=== PATIENT | female | born 1955 | race Caucasian/White ===

== ENCOUNTER 2020-05-04 11:22 | Emergency (ER) | payer SELFPAY ==
[~2020-05-04] VITALS: Ht 157.5 cm; Wt 68.8 kg
[2020-05-04] MEDS ORDERED: NORVASC5 M1 PO (12:51)
[2020-05-04] MEDS ORDERED: ESCITALOPRAM OX10 MG PO (12:51)
[2020-05-04] MEDS ORDERED: CYCLOBENZAPR5 MG PO (12:52)
[2020-05-04] MEDS ORDERED: METOPROL TAR25 MG PO (12:52)
[2020-05-04] MEDS ORDERED: HYDROXYZ HCL25 MG PO (12:53)
[2020-05-04] MEDS ORDERED: TRAZODONE50 MG PO (12:53)
[2020-05-04] MEDS ORDERED: ATORVASTATIN CA40 MG PO (12:53)
[2020-05-04] MEDS ORDERED: PROTONIX40 M2 PO (12:54)
[2020-05-04 13:56] VITALS: BP 103/79
== END 2020-05-04 13:56 | disposition home or self-care (01) | DRG 556 ==
LOC: ED 11:22
DX: M79.7 Fibromyalgia (principal); M19.90 Unspecified osteoarthritis, unspecified site; I10 Essential (primary) hypertension; F17.200 Nicotine dependence, unspecified, uncomplicated; T40.2X6A Underdosing of other opioids, initial encounter; Z91.128 Patient's intentional underdosing of medication regimen for other reason

== ENCOUNTER 2022-04-22 04:38 | Emergency (ER) | payer MEDICARE, MEDICAID ==
[~2022-04-22] VITALS: Ht 157.5 cm; Wt 56.8 kg
[~2022-04-22 04:38] MED LIST: ALBUTERO3 IN; ATORVASTATIN CA40 MG PO; CYCLOBENZAPR5 MG PO; ESCITALOPRAM OX10 MG PO; HYDROCO/APAP1 T10 PO; HYDROCO/APAP1 TA9 PO; HYDROXYZ HCL25 MG PO; LYRICA150 MG PO; LYRICA225 MG PO; METOPROL TAR25 MG PO; NEURONTIN600 MG PO; NORCO1 TA2 PO; NORVASC5 M1 PO; PERCOCET 10/31 COMBO PO; PROTONIX40 M2 PO; TRAZODONE50 MG PO
[2022-04-22 05:58] LABS: HEMATOCRIT 36.3 % (37.0-47.0); HEMOGLOBIN 11.9 g/dl (12.0-16.0); IMMATURE GRANULOCYTES 0.1 % (0.0-5.0); MEAN CELL VOLUME 97.3 fL CALC (80.0-100.0); MEAN CORPUSCULAR HGB 31.9 pG CALC (26.0-32.0); MEAN CORPUSCULAR HGB CONC 32.8 g/dL CAL (32.0-36.0); NEUT# 4.27 thou/uL (2.00-7.15); RED BLOOD COUNT 3.73 mill/uL (4.20-5.60); RED CELL DISTRI WIDTH 12.4 % (11.5-15.5)
[2022-04-22 06:11] LABS: ALBUMIN 4.3 g/dL (3.2-5.0); ALKALINE PHOSPHATASE 36 u/l (38-126); ANION GAP 10 (6-22 (CALC)); BILIRUBIN, TOTAL 0.5 mg/dL (0.0-1.4); BUN 25 mg/dL (8-23); BUN/CREATININE RATIO 24 (12-20 (CALC)); CARBON DIOXIDE 26 mmol/l (22-30); CHLORIDE 108 mmol/l (95-108); CREATININE 1.1 mg/dL (0.5-1.0); GFR FOR AFR.AMER. 60 ML/MIN (>=60 (CALC)); GFR OTHER RACES 50 ML/MIN (>=60 (CALC)); POTASSIUM 4.1 mmol/l (3.5-5.1); SGOT/AST 48 u/l (9-36); SODIUM 140 mmol/l (137-146); TOTAL PROTEIN 6.9 g/dL (6.3-8.2)
[2022-04-22 06:24] LABS: MYOGLOBIN 83 ng/mL (0 - 62)
[2022-04-22] MEDS ORDERED: DIFLUCAN150 MG PO (07:14)
[2022-04-22 08:12] VITALS: BP 132/68
== END 2022-04-22 08:14 | disposition home or self-care (01) ==
LOC: ED 04:38
PROVIDERS: Emergency Medicine
DX: J44.1 Chronic obstructive pulmonary disease with (acute) exacerbation (principal); B37.0 Candidal stomatitis; I10 Essential (primary) hypertension; F17.200 Nicotine dependence, unspecified, uncomplicated

== ENCOUNTER 2023-01-05 09:08 | Day surgery (SDC) | payer MEDICARE ==
[~2023-01-05] VITALS: Ht 157.5 cm; Wt 59.0 kg
[~2023-01-05 09:08] MED LIST changes: +BUPROPION HCL150 MG PO; +DIFLUCAN150 MG PO; +SERTRALINE50 MG PO
[2023-01-05 11:31] VITALS: BP 136/88
== END 2023-01-05 11:31 | disposition home or self-care (01) ==
LOC: ENDO 09:08 → ORM 11:50 → ENDO 11:50 → ORM 12:45
PROVIDERS: ATTEND Internal Medicine Gastroenterology
PROC: 0DJD8ZZ Inspection of Lower Intestinal Tract, Via Natural or Artificial Opening Endoscopic (ICD-10-PCS; principal; 2023-01-05)
PROC: 0D738ZZ Dilation of Lower Esophagus, Via Natural or Artificial Opening Endoscopic (ICD-10-PCS; 2023-01-05)
PROC: 0DB48ZX Excision of Esophagogastric Junction, Via Natural or Artificial Opening Endoscopic, Diagnostic (ICD-10-PCS; 2023-01-05)
PROC: 0DB78ZX Excision of Stomach, Pylorus, Via Natural or Artificial Opening Endoscopic, Diagnostic (ICD-10-PCS; 2023-01-05)
DX: K22.2 Esophageal obstruction (principal); K29.50 Unspecified chronic gastritis without bleeding; K21.00 Gastro-esophageal reflux disease with esophagitis, without bleeding; K22.70 Barrett's esophagus without dysplasia; Z12.11 Encounter for screening for malignant neoplasm of colon; K57.30 Diverticulosis of large intestine without perforation or abscess without bleeding; K64.8 Other hemorrhoids; K59.03 Drug induced constipation; T40.605A Adverse effect of unspecified narcotics, initial encounter; I10 Essential (primary) hypertension; Z79.899 Other long term (current) drug therapy; Z86.010 Personal history of colon polyps
CPT/HCPCS: 43239; 43248; G0105